=== PATIENT | male | born 1960 | race Caucasian/White ===

== ENCOUNTER 2017-12-01 16:24 | Emergency (ER) | payer MEDICARE ==
[2017-12-01] MEDS ORDERED: HYDROcodone/Acetaminophen 5/325 mg Tablet ONE (17:24)
--- NOTE | 2017-12-01 17:31 | RAD ---
RIGHT HUMERUS TWO VIEWS: HISTORY: Fall. COMPARISON: None. FINDINGS: There is a spiral fracture of the proximal humeral metadiaphysis. One cortex width lateral displacem ent. IMPRESSION: 1. Spiral fracture, proximal humeral metadiaphysis, with overlying soft tissue swelling. 2. Mild irregularity of the right lateral fifth rib may reflect an underlying fracture. POS: [facility]
--- NOTE | 2017-12-01 17:47 | RAD ---
RIGHT ELBOW FOUR VIEWS: HISTORY: Injury. COMPARISON: None. FINDINGS: There is a large joint effusion. There is mild widening of the ulnar-trochlear joint. On the obliqu e radiograph, there is some cortical irregularity of the capitellum. Extensive soft tissue swelling. IMPRESSION: Large joint effusion with soft tissue swelling and some mild cortical irregularity of the capitellum. There is also mild widening of the ulnar-trochlear joint. A nondisplaced fracture is suspected. POS: [facility]
== END 2017-12-01 17:47 | disposition home or self-care (01) ==
LOC: BURERS 16:24
DX: S42.201A Unspecified fracture of upper end of right humerus, initial encounter for closed fracture (principal); S42.401A Unspecified fracture of lower end of right humerus, initial encounter for closed fracture; I10 Essential (primary) hypertension; F17.200 Nicotine dependence, unspecified, uncomplicated; W17.89XA Other fall from one level to another, initial encounter
CPT/HCPCS: 29105

== ENCOUNTER 2018-10-23 19:53 | Emergency (ER) | payer MEDICARE ==
[2018-10-23 21:02] LABS: ALT (SGPT) 16 U/L (8-55); AST (SGOT) 21 U/L (5-34); Albumin 3.9 g/dL (3.5-5.0); Alkaline Phosphatase 120 U/L (40-150); Anion Gap 17 mmol/L (10-20); BUN (Urea Nitrogen) 15 mg/dL (8.4-25.7); Bilirubin, Total 1.2 mg/dL (0.2-1.2); Calc. Creatinine Clearance 0 mL/min (70-130); Calcium 9.6 mg/dL (7.8-10.44); Carbon Dioxide 25 mmol/L (22-29); Chloride 92 mmol/L (98-107); Estimated GFR-MDRD Greater than 90; Globulin 3.9 g/dL (2.4-3.5); Glucose 122 mg/dL (70-105); Potassium 3.8 mmol/L (3.5-5.1); Protein, Total 7.8 g/dL (6.0-8.3); Sodium 130 mmol/L (136-145)
[2018-10-23] MEDS ORDERED: Thiamine HCl 200 MG/2 ML VIAL ONE (21:03)
[2018-10-23 21:04] LABS: Hemoglobin 20.2 g/dL (14.0-18.0); Mean Corpuscular HGB CONC 33.6 g/dL (32.0-36.0); Mean Corpuscular Hemoglobin 33.7 pg (27.0-31.0); Mean Platelet Volume 9.6 fL (7.4-10.4); Platelet Count 184 thou/uL (130-400); RBC Distribution Width 12.2 % (11.5-14.5); Red Blood Cell (RBC) Count 5.99 mill/uL (4.70-6.10)
[2018-10-23 21:13] LABS: #Basophils 0.1 thou/uL (0.0-0.2); #Eosinphils 0.1 thou/uL (0.0-0.7); #Lymphocytes 1.3 thou/uL (1.20-3.40); #Monocytes 0.9 thou/uL (0.11-0.59); #Neutrophils 9.6 thou/uL (1.40-6.50); %Eosinophils 1.2 % (0.0-10.0); %Lymphocytes 10.3 % (21.0-51.0); %Monocytes 7.4 % (0.0-10.0); %Neutrophils 80.1 % (42.0-75.0); Platelet Morphology Comment Appears Adequate; RBC Morphology Normal
[2018-10-23] MEDS ORDERED: Fentanyl 100 MCG/2 ML VIAL ONE (21:27)
--- NOTE | 2018-10-23 21:34 | CT ---
CT brain. HISTORY: Altered mental status. Noncontrast enhanced CT images of the brain obtained on 10/23/2018. Paul comparison made to previous e xam from 09/16/2014. There is an old area of left occipital stroke unchanged since the previous exam. Deep white matter stomach changes seen. No evidence of acute intracranial pathology seen. IMPRESSION: No evidence of acute intracranial abnormality seen.
--- NOTE | 2018-10-23 23:41 | RAD ---
2 views right hip. HISTORY: Fall 2 days ago with hip pain. AP and frog leg views right hip obtained. Images demonstrate a moderately displaced right femoral neck fracture. IMPRESSION: displaced right femoral neck fracture.
== END 2018-10-23 22:10 | disposition short-term general hospital (02) ==
LOC: BURERS 19:53
DX: S72.001A Fracture of unspecified part of neck of right femur, initial encounter for closed fracture (principal); D75.1 Secondary polycythemia; D75.89 Other specified diseases of blood and blood-forming organs; I10 Essential (primary) hypertension; Z86.73 Personal history of transient ischemic attack (TIA), and cerebral infarction without residual deficits; F17.210 Nicotine dependence, cigarettes, uncomplicated; Z79.899 Other long term (current) drug therapy; W19.XXXA Unspecified fall, initial encounter
CPT/HCPCS: 70450; 80053; 83605; 84443; 84484; 85025; 93005; 94760; 96365; 96375; J3010; J3411

== ENCOUNTER 2018-10-30 14:49 | Inpatient (IN) | payer MEDICARE ==
[2018-10-30] MEDS ORDERED: traMADol HCl 50 MG TAB PO PRN (18:25)
[2018-10-30] MEDS ORDERED: Cyclobenzaprine 10 MG TAB PO PRN (18:25)
[2018-10-30] MEDS: Senokot S 8.6-50 MG TAB PO SCH (21:10)
[2018-10-30] MEDS: Acetaminophen 500 MG TAB PO SCH (21:10)
[2018-10-30] MEDS: Aspirin 81 mg Enteric Coated Tablet PO SCH (21:11)
[2018-10-30] MEDS: Ibuprofen 200 MG TAB PO SCH (21:11)
[2018-10-31] MEDS: Acetaminophen 500 MG TAB PO SCH ×4 (02:11→20:51)
[2018-10-31] MEDS: Levothyroxine Sodium 50 MCG TAB PO SCH (06:13)
[2018-10-31] MEDS: Ibuprofen 200 MG TAB PO SCH ×3 (06:13→20:51)
[2018-10-31] MEDS: Aspirin 81 mg Enteric Coated Tablet PO SCH ×2 (09:32→20:51)
[2018-10-31] MEDS: Thiamine 100 MG TAB PO SCH (09:32)
[2018-10-31] MEDS: Polyethylene Glycol 3350 17 GM Packet PO SCH (09:32)
[2018-10-31] MEDS: Potassium Chloride 10 MEQ TAB PO SCH (09:32)
[2018-10-31] MEDS: FLUoxetine HCl 10 MG CAP PO SCH (09:32)
[2018-10-31] MEDS: Senokot S 8.6-50 MG TAB PO SCH ×2 (09:33→20:52)
[2018-10-31] MEDS: Lisinopril 10 MG TAB PO SCH (09:33)
[2018-10-31] MEDS: Folic Acid 1 MG TAB PO SCH (09:35)
[2018-11-01] MEDS: Acetaminophen 500 MG TAB PO SCH ×4 (02:15→21:03)
[2018-11-01] MEDS: Ibuprofen 200 MG TAB PO SCH ×3 (05:24→21:03)
[2018-11-01] MEDS: Levothyroxine Sodium 50 MCG TAB PO SCH (05:24)
[2018-11-01] MEDS: FLUoxetine HCl 10 MG CAP PO SCH (08:26)
[2018-11-01] MEDS: Thiamine 100 MG TAB PO SCH (08:26)
[2018-11-01] MEDS: Potassium Chloride 10 MEQ TAB PO SCH (08:27)
[2018-11-01] MEDS: Lisinopril 10 MG TAB PO SCH (08:27)
[2018-11-01] MEDS: Folic Acid 1 MG TAB PO SCH (08:29)
[2018-11-01] MEDS: Aspirin 81 mg Enteric Coated Tablet PO SCH ×2 (08:29→21:04)
[2018-11-01] MEDS: Senokot S 8.6-50 MG TAB PO SCH (08:30)
[2018-11-01] MEDS: Polyethylene Glycol 3350 17 GM Packet PO SCH (08:30)
[2018-11-01] MEDS ORDERED: Polyethylene Glycol 3350 17 GM Packet PO PRN (15:06)
[2018-11-01] MEDS ORDERED: Senokot S 8.6-50 MG TAB PO PRN ×2 (15:07→15:15)
[2018-11-02] MEDS: Acetaminophen 500 MG TAB PO SCH ×4 (02:30→20:51)
[2018-11-02] MEDS: Ibuprofen 200 MG TAB PO SCH ×3 (05:33→20:51)
[2018-11-02] MEDS: Levothyroxine Sodium 50 MCG TAB PO SCH (05:34)
--- NOTE | 2018-11-02 08:42 | HP ---
REASON FOR TRANSFER: Physical and occupational therapy status post right hip surgery. HISTORY OF PRESENT ILLNESS: The patient is a 58-year-old white male who presented to the emergency room on 10/24/2018 after having several days of right hip pain. The patient has a history of chronic alcohol use and abuse and apparently 3 days prior to presenting to the emergency room, he began having pain in his right hip. He may have fallen while intoxicated. Since the pain did not improve, he presented to the emergency room. While in the emergency room, he was evaluated. X-rays of the right hip demonstrated displaced right femoral neck fracture and thus the patient was admitted to the hospital. While he was in the hospital, he underwent surgery by Dr. Manuel Cary, had a right hip hemiarthroplasty without any complications. He was given medications to treat possible alcohol withdrawal and he had no significant signs of withdrawal during his hospital stay, but continued to have weakness especially since the patient has right hemiparesis from old CVA and thus needs continued physical and occupational therapy, and was transferred to [facility] for further treatment. PAST MEDICAL HISTORY: Significant for, 1. Hypertension. 2. Hyperlipidemia. 3. 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 4. Hypothyroidism. 5. History of chronic alcohol abuse. 6. History of chronic pain. PAST SURGICAL HISTORY: No significant past surgical history. SOCIAL HISTORY: The patient apparently smokes a pack a day and drinks 5 to 6 beers a day, and has a remote history of marijuana use. MEDICATIONS: The patient was on the following medications. 1. Ibuprofen 600 mg t.i.d. 2. Tylenol p.r.n. pain. 3. Aspirin 81 mg daily. 4. Flexeril 5 mg t.i.d. p.r.n. pain. 5. Folic acid. 6. Lisinopril 10 mg daily. 7. MiraLax as needed daily. 8. Thiamine 100 mg daily. 9. Tramadol 50 mg p.o. q.6 hours p.r.n. pain. 10. Diltiazem 180 mg daily. 11. Synthroid 50 mcg daily. 12. Fluoxetine 20 mg daily. 13. Potassium chloride 10 mEq daily. PHYSICAL EXAMINATION: GENERAL: White male, thin, in no obvious distress. HEENT: Oropharynx, mucous membranes are moist. NECK: Supple. No masses are palpated. CHEST: Clear to auscultation bilaterally. HEART: Reveals a regular rate and rhythm. ABDOMEN: Flat, soft, nontender, and nondistended. No masses are palpated. EXTREMITIES: Right lateral hip area with covered dressing, some mild surrounding erythema, but no tenderness to palpation. SKIN: Evaluation of the skin did show some confluent areas of erythema and ecchymosis to the left upper extremity. NEUROLOGIC: Significant for some slight contracture of the right upper extremity and decreased strength of the right upper and lower extremities. ASSESSMENT AND PLAN: 1. Status post right hip fracture status post surgery. The patient will undergo physical therapy and occupational therapy. 2. Hypertension. The patient will continue on his ANDRES inhibitor and calcium channel everardo. 3. History of alcohol abuse. The patient will continue on folic acid and thiamine. He has had no signs of withdrawal, now he is 6 days post no alcohol intake, so we will hold on any benzodiazepines at this time. 4. Status post cerebrovascular accident, this may sort of exacerbate patient's recovery time. We will follow as he is treated by therapy department. 5. Disposition. The patient is planned to be discharged to home. 6. For deep venous thrombosis prophylaxis, he is on aspirin 81 mg daily and he is able to get up on his own and has some fairly good mobility. Job ID: [id number]
[2018-11-02] MEDS: Thiamine 100 MG TAB PO SCH (08:50)
[2018-11-02] MEDS: FLUoxetine HCl 10 MG CAP PO SCH (08:50)
[2018-11-02] MEDS: Folic Acid 1 MG TAB PO SCH (08:50)
[2018-11-02] MEDS: Potassium Chloride 10 MEQ TAB PO SCH (08:51)
[2018-11-02] MEDS: Lisinopril 10 MG TAB PO SCH (08:51)
[2018-11-02] MEDS: Aspirin 81 mg Enteric Coated Tablet PO SCH ×2 (08:51→20:51)
[2018-11-02] MEDS ORDERED: BEER 1 CAN PO PRN (12:24)
[2018-11-03] MEDS: Acetaminophen 500 MG TAB PO SCH ×4 (02:04→20:51)
[2018-11-03] MEDS: Levothyroxine Sodium 50 MCG TAB PO SCH (05:15)
[2018-11-03] MEDS: Ibuprofen 200 MG TAB PO SCH ×3 (05:15→20:51)
[2018-11-03] MEDS: Lisinopril 10 MG TAB PO SCH (09:12)
[2018-11-03] MEDS: Thiamine 100 MG TAB PO SCH (09:13)
[2018-11-03] MEDS: Aspirin 81 mg Enteric Coated Tablet PO SCH ×2 (09:13→20:51)
[2018-11-03] MEDS: FLUoxetine HCl 10 MG CAP PO SCH (09:13)
[2018-11-03] MEDS: Folic Acid 1 MG TAB PO SCH (09:13)
[2018-11-03] MEDS: Potassium Chloride 10 MEQ TAB PO SCH (09:13)
[2018-11-04] MEDS: Acetaminophen 500 MG TAB PO SCH ×4 (01:52→20:46)
[2018-11-04] MEDS: Levothyroxine Sodium 50 MCG TAB PO SCH (05:15)
[2018-11-04] MEDS: Ibuprofen 200 MG TAB PO SCH ×3 (05:15→20:47)
[2018-11-04] MEDS: FLUoxetine HCl 10 MG CAP PO SCH (09:47)
[2018-11-04] MEDS: Aspirin 81 mg Enteric Coated Tablet PO SCH ×2 (09:47→20:47)
[2018-11-04] MEDS: Potassium Chloride 10 MEQ TAB PO SCH (09:48)
[2018-11-04] MEDS: Thiamine 100 MG TAB PO SCH (09:48)
[2018-11-04] MEDS: Folic Acid 1 MG TAB PO SCH (09:49)
[2018-11-04] MEDS: Lisinopril 10 MG TAB PO SCH (09:50)
[2018-11-05] MEDS: Acetaminophen 500 MG TAB PO SCH ×4 (01:53→21:10)
[2018-11-05] MEDS: Ibuprofen 200 MG TAB PO SCH ×3 (05:45→21:10)
[2018-11-05] MEDS: Levothyroxine Sodium 50 MCG TAB PO SCH (05:45)
[2018-11-05] MEDS: FLUoxetine HCl 10 MG CAP PO SCH (08:35)
[2018-11-05] MEDS: Lisinopril 10 MG TAB PO SCH (08:36)
[2018-11-05] MEDS: Thiamine 100 MG TAB PO SCH (08:36)
[2018-11-05] MEDS: Aspirin 81 mg Enteric Coated Tablet PO SCH ×2 (08:36→21:10)
[2018-11-05] MEDS: Folic Acid 1 MG TAB PO SCH (08:36)
[2018-11-05] MEDS: Potassium Chloride 10 MEQ TAB PO SCH (08:36)
[2018-11-06] MEDS: Acetaminophen 500 MG TAB PO SCH ×4 (01:54→20:56)
[2018-11-06] MEDS: Levothyroxine Sodium 50 MCG TAB PO SCH (05:27)
[2018-11-06] MEDS: Ibuprofen 200 MG TAB PO SCH ×3 (05:27→20:56)
[2018-11-06] MEDS: Folic Acid 1 MG TAB PO SCH (08:37)
[2018-11-06] MEDS: Aspirin 81 mg Enteric Coated Tablet PO SCH ×2 (08:37→20:56)
[2018-11-06] MEDS: FLUoxetine HCl 10 MG CAP PO SCH (08:37)
[2018-11-06] MEDS: Potassium Chloride 10 MEQ TAB PO SCH (08:37)
[2018-11-06] MEDS: Lisinopril 10 MG TAB PO SCH (08:37)
[2018-11-06] MEDS: Thiamine 100 MG TAB PO SCH (08:37)
[2018-11-07] MEDS: Acetaminophen 500 MG TAB PO SCH ×4 (01:47→20:36)
[2018-11-07] MEDS: Levothyroxine Sodium 50 MCG TAB PO SCH (05:13)
[2018-11-07] MEDS: Ibuprofen 200 MG TAB PO SCH ×3 (05:14→20:37)
[2018-11-07] MEDS: Lisinopril 10 MG TAB PO SCH (09:21)
[2018-11-07] MEDS: FLUoxetine HCl 10 MG CAP PO SCH (09:21)
[2018-11-07] MEDS: Potassium Chloride 10 MEQ TAB PO SCH (09:22)
[2018-11-07] MEDS: Folic Acid 1 MG TAB PO SCH (09:22)
[2018-11-07] MEDS: Aspirin 81 mg Enteric Coated Tablet PO SCH ×2 (09:22→20:37)
[2018-11-07] MEDS: Thiamine 100 MG TAB PO SCH (09:22)
[2018-11-08] MEDS: Acetaminophen 500 MG TAB PO SCH ×4 (02:09→21:02)
[2018-11-08] MEDS: Ibuprofen 200 MG TAB PO SCH ×3 (04:54→21:02)
[2018-11-08] MEDS: Levothyroxine Sodium 50 MCG TAB PO SCH (04:54)
[2018-11-08] MEDS: Potassium Chloride 10 MEQ TAB PO SCH (08:45)
[2018-11-08] MEDS: Folic Acid 1 MG TAB PO SCH (08:46)
[2018-11-08] MEDS: Lisinopril 10 MG TAB PO SCH (08:46)
[2018-11-08] MEDS: Thiamine 100 MG TAB PO SCH (08:46)
[2018-11-08] MEDS: FLUoxetine HCl 10 MG CAP PO SCH (08:46)
[2018-11-08] MEDS: Aspirin 81 mg Enteric Coated Tablet PO SCH ×2 (08:47→21:02)
[2018-11-09] MEDS: Acetaminophen 500 MG TAB PO SCH ×4 (02:07→20:16)
[2018-11-09] MEDS: Ibuprofen 200 MG TAB PO SCH ×3 (05:33→21:15)
[2018-11-09] MEDS: Levothyroxine Sodium 50 MCG TAB PO SCH (05:33)
[2018-11-09] MEDS: Lisinopril 10 MG TAB PO SCH (05:34)
[2018-11-09] MEDS ORDERED: Acetaminophen 500 MG TAB ONE (08:13)
[2018-11-09] MEDS: Folic Acid 1 MG TAB PO SCH (08:32)
[2018-11-09] MEDS: Aspirin 81 mg Enteric Coated Tablet PO SCH ×2 (08:32→20:16)
[2018-11-09] MEDS: Potassium Chloride 10 MEQ TAB PO SCH (08:32)
[2018-11-09] MEDS: Thiamine 100 MG TAB PO SCH (08:32)
[2018-11-09] MEDS: FLUoxetine HCl 10 MG CAP PO SCH (08:32)
[2018-11-10] MEDS: Acetaminophen 500 MG TAB PO SCH ×4 (01:51→21:09)
[2018-11-10] MEDS: Levothyroxine Sodium 50 MCG TAB PO SCH (05:41)
[2018-11-10] MEDS: Ibuprofen 200 MG TAB PO SCH ×3 (05:41→21:10)
[2018-11-10] MEDS: Folic Acid 1 MG TAB PO SCH (08:37)
[2018-11-10] MEDS: Aspirin 81 mg Enteric Coated Tablet PO SCH ×2 (08:37→21:10)
[2018-11-10] MEDS: FLUoxetine HCl 10 MG CAP PO SCH (08:38)
[2018-11-10] MEDS: Lisinopril 10 MG TAB PO SCH (08:38)
[2018-11-10] MEDS: Thiamine 100 MG TAB PO SCH (08:38)
[2018-11-10] MEDS: Potassium Chloride 10 MEQ TAB PO SCH (08:38)
[2018-11-11] MEDS: Acetaminophen 500 MG TAB PO SCH ×4 (02:46→20:45)
[2018-11-11] MEDS: Levothyroxine Sodium 50 MCG TAB PO SCH (05:58)
[2018-11-11] MEDS: Ibuprofen 200 MG TAB PO SCH ×3 (05:58→20:45)
[2018-11-11] MEDS: FLUoxetine HCl 10 MG CAP PO SCH (08:45)
[2018-11-11] MEDS: Thiamine 100 MG TAB PO SCH (08:46)
[2018-11-11] MEDS: Aspirin 81 mg Enteric Coated Tablet PO SCH ×2 (08:46→20:45)
[2018-11-11] MEDS: Potassium Chloride 10 MEQ TAB PO SCH (08:46)
[2018-11-11] MEDS: Folic Acid 1 MG TAB PO SCH (08:46)
[2018-11-11] MEDS: Lisinopril 10 MG TAB PO SCH (08:46)
[2018-11-11 12:32] VITALS: BMI 20.2
[2018-11-12] MEDS: Acetaminophen 500 MG TAB PO SCH ×4 (02:29→20:26)
[2018-11-12] MEDS: Levothyroxine Sodium 50 MCG TAB PO SCH (06:01)
[2018-11-12] MEDS: Ibuprofen 200 MG TAB PO SCH ×3 (06:01→20:25)
[2018-11-12] MEDS: Folic Acid 1 MG TAB PO SCH (09:07)
[2018-11-12] MEDS: Lisinopril 10 MG TAB PO SCH (09:07)
[2018-11-12] MEDS: FLUoxetine HCl 10 MG CAP PO SCH (09:07)
[2018-11-12] MEDS: Thiamine 100 MG TAB PO SCH (09:07)
[2018-11-12] MEDS: Potassium Chloride 10 MEQ TAB PO SCH (09:07)
[2018-11-12] MEDS: Aspirin 81 mg Enteric Coated Tablet PO SCH ×2 (09:07→20:25)
[2018-11-13] MEDS: Acetaminophen 500 MG TAB PO SCH ×3 (01:53→14:00)
[2018-11-13] MEDS: Levothyroxine Sodium 50 MCG TAB PO SCH (05:19)
[2018-11-13] MEDS: Ibuprofen 200 MG TAB PO SCH ×2 (05:19→14:00)
[2018-11-13 06:11] VITALS: BP 135/70; TEMP 97.5
[2018-11-13] MEDS: FLUoxetine HCl 10 MG CAP PO SCH (09:18)
[2018-11-13] MEDS: Folic Acid 1 MG TAB PO SCH (09:19)
[2018-11-13] MEDS: Potassium Chloride 10 MEQ TAB PO SCH (09:19)
[2018-11-13] MEDS: Aspirin 81 mg Enteric Coated Tablet PO SCH (09:20)
[2018-11-13] MEDS: Lisinopril 10 MG TAB PO SCH (09:20)
[2018-11-13] MEDS: Thiamine 100 MG TAB PO SCH (09:20)
== END 2018-11-13 15:20 | disposition home health service (06) | DRG 560 ==
LOC: BURMED 16:50
PROVIDERS: ADMIT Family Medicine; ATTEND Family Medicine
DX: S72.001D Fracture of unspecified part of neck of right femur, subsequent encounter for closed fracture with routine healing (principal); I69.351 Hemiplegia and hemiparesis following cerebral infarction affecting right dominant side; E03.9 Hypothyroidism, unspecified; E78.5 Hyperlipidemia, unspecified; I10 Essential (primary) hypertension; F10.11 Alcohol abuse, in remission; F17.210 Nicotine dependence, cigarettes, uncomplicated; Z79.82 Long term (current) use of aspirin; W19.XXXD Unspecified fall, subsequent encounter

== ENCOUNTER 2019-12-22 16:56 | Emergency (ER) | payer MEDICARE, SELFPAY ==
[~2019-12-22 16:56] MED LIST: Iopamidol 370 76% 100 ML VIAL ONE
[2019-12-22] MEDS ORDERED: Ketorolac Tromethamine 30 MG/ML VIAL ONE (17:33)
[2019-12-22 17:36] LABS: Bilirubin Negative (Negative); Blood, Urine Large (Negative); Clarity Hazy (Clear); Glucose, Urine (Dipstick) >=1000 mg/dL (Negative); Ketone, Urine Negative (Negative); Leukocyte Negative (Negative); Nitrite Negative (Negative); Protein, Urine (Dipstick) > or equal to 300 mg/dL (Neg-Trace); Specific Gravity, Urine 1.023 (1.002-1.036); Urobilinogen 0.2 mg/dL (Less than 2)
[2019-12-22 17:39] LABS: Bacteria/HPF 1+ HPF (None Seen); Mucous/LPF 2+ LPF (<2+); Squamous Epithelial 0-3 HPF (0-3); WBC/HPF 0-3 HPF (0-3)
[2019-12-22] MEDS ORDERED: Fentanyl 100 MCG/2 ML VIAL ONE (18:16)
[2019-12-22] MEDS ORDERED: Ondansetron PF 4 MG/2 ML Vial ONE (18:16)
[2019-12-22] MEDS ORDERED: Metoprolol Tartrate 5 MG/5 ML VIAL ONE (18:16)
[2019-12-22 18:25] LABS: #Basophils 0.1 thou/uL (0.0-0.2); #Lymphocytes 1.2 thou/uL (1.20-3.40); #Monocytes 0.8 thou/uL (0.11-0.59); %Basophils 0.8 % (0.0-1.0); %Eosinophils 0.1 % (0.0-10.0); %Lymphocytes 9.8 % (21.0-51.0); %Monocytes 6.4 % (0.0-10.0); %Neutrophils 82.9 % (42.0-75.0); Hemoglobin 19.9 g/dL (14.0-18.0); Mean Corpuscular HGB CONC 30.6 g/dL (32.0-36.0); Mean Corpuscular Hemoglobin 31.7 pg (27.0-31.0); Mean Platelet Volume 7.3 fL (7.4-10.4); Platelet Count 281 thou/uL (130-400); RBC Distribution Width 13.5 % (11.5-14.5); Red Blood Cell (RBC) Count 6.29 mill/uL (4.70-6.10)
[2019-12-22 18:41] LABS: ALT (SGPT) 7 U/L (8-55); AST (SGOT) 22 U/L (5-34); Alkaline Phosphatase 94 U/L (40-110); Anion Gap 13 mmol/L (10-20); BUN (Urea Nitrogen) 7 mg/dL (8.4-25.7); Bilirubin, Total 0.4 mg/dL (0.2-1.2); Calc. Creatinine Clearance 0 mL/min (70-130); Calcium 9.5 mg/dL (7.8-10.44); Carbon Dioxide 29 mmol/L (22-29); Chloride 98 mmol/L (98-107); Estimated GFR-MDRD Greater than 90; Globulin 3.8 g/dL (2.4-3.5); Glucose 141 mg/dL (70-105); Protein, Total 7.8 g/dL (6.0-8.3); Sodium 136 mmol/L (136-145)
--- NOTE | 2019-12-22 19:33 | CT ---
CT ABDOMEN AND PELVIS WITHOUT CONTRAST: 12/22/19 The lung bases are clear. The liver, spleen, pancreas, and adrenal glands, appear normal. There may b e a small gallstone in the gallbladder. A 1.5 cm left renal calculus is present with no obstruction. I see no right renal calculi or ureteral calculi. An incidental finding is a mild anterior compressio n of T12 that may be old. The major finding on the study is a protrusion from the mid-abdominal aorta near the renal artery lev el towards the right. This is presumably an aneurysm and it measures 4.4 cm in diameter at this level . See CT angio report to follow. The CT of the pelvis is partially obscured by streak artifact from t he patient's artificial right hip. No pelvic masses or fluid collections were seen. No free air or fr ee fluid was present in this patient's abdomen. IMPRESSION: 1. 4.4 cm mid abdominal aortic aneurysm with protrusion towards the right side. See CT angio to follow. 2. 1.5 cm nonobstructing left renal calculus. 3. Incidental mild anterior compression of T12, probably old. Initial discussions with Dr. Shea at 1805 on 12/22/19. POS: HOME
--- NOTE | 2019-12-22 19:43 | CT ---
CT ANGIO OF THE CHEST AND ABDOMEN (AORTIC DISSECTION PROTOCOL) 12/22/[address] of the chest and abdomen to cover the entire aorta was performed in an aortic dissection pr otocol. Axial slices were acquired, followed by sagittal and coronal MIP reconstructions. There is an abdominal aortic aneurysm with dissection that begins at the level of the renal arteries and extends downward. The thoracic and upper abdominal aorta shows some mild thrombus formation but n o dissection in those areas. The dissection begins at the renal artery level. One sees narrowing of the origin of the right renal artery which could be involvement by the dissection and/or arteriosclerotic change. The left renal ar ted fills normally. The celiac artery, superior mesenteric artery both fill normally. I do not see m uch of any filling of the inferior mesenteric artery but some of its branches may be filling in a ret rograde fashion. As one follows the dissection inferiorly, the right common iliac artery fills but at its branch point into internal and external iliac arteries, one can see an intimal flap in the right external iliac artery through the last slice of the series. The right internal iliac artery appears to fill somewhat normally. There is no filling that is discernible in the left common iliac artery, n or the left external iliac artery. One does see contrast in the left internal iliac artery, but in le sser amounts. Both kidneys seem to perfuse very nicely. Regarding the chest, again, no dissection is seen in this r egion. There is no sign of pericardial effusion, pulmonary infiltrate or effusion. IMPRESSION: 1. 4.4 cm abdominal aortic aneurysm starting around the level of the renal arteries with dissect ion inferiorly. 2. Involvement of the origin of the right renal artery by dissection and/or arteriosclerosis. Th ere is obvious narrowing here but the right kidney is still perfusing well. 3. Celiac and SMA fill normally. DAVID does not obviously fill. 4. Dissection continues into the right iliac artery system with an obvious intimal flap in the r ight external iliac artery. 5. Non-filling of the left common iliac artery and left external iliac artery. Some meager flow is seen in branches of the left internal iliac artery. Findings discussed with Dr. Shea at 1926 on 12/22/19. POS: HOME
== END 2019-12-22 21:10 | disposition short-term general hospital (02) ==
LOC: BURERS 16:56
DX: I71.4 Abdominal aortic aneurysm, without rupture (principal); I71.02 Dissection of abdominal aorta; F10.10 Alcohol abuse, uncomplicated; N20.0 Calculus of kidney; D75.1 Secondary polycythemia; M48.54XA Collapsed vertebra, not elsewhere classified, thoracic region, initial encounter for fracture; I10 Essential (primary) hypertension; F17.210 Nicotine dependence, cigarettes, uncomplicated; Z79.899 Other long term (current) drug therapy; Z86.73 Personal history of transient ischemic attack (TIA), and cerebral infarction without residual deficits
CPT/HCPCS: 71275; 72191; 74175; 74176; 80053; 81003; 81015; 85025; 87086; 93005; 94760; 96361; 96372; 96374; 96375; J1885; J2405; J3010; Q9967

== ENCOUNTER 2022-06-19 06:09 | Emergency (ER) | payer MEDICARE ==
[2022-06-19] MEDS ORDERED: Bupivacaine 0.5% 10 ML VIAL ONE (08:23)
[2022-06-19] MEDS ORDERED: HYDROcodone/Acetaminophen 5/325 mg Tablet ONE (08:33)
[2022-06-19] MEDS ORDERED: Cephalexin 250 MG CAP ONE (08:33)
== END 2022-06-19 08:46 | disposition home or self-care (01) ==
LOC: BURERS 06:09
DX: K04.7 Periapical abscess without sinus (principal); I10 Essential (primary) hypertension; F17.210 Nicotine dependence, cigarettes, uncomplicated; Z79.899 Other long term (current) drug therapy
CPT/HCPCS: 99282; J3490